=== PATIENT | female | born 1960 | race Caucasian/White ===

== ENCOUNTER → 2022-05-02 07:48 | Outpatient (CLI) | payer BC, SELFPAY ==
--- NOTE | ~2022-05-02 | US_ITS ---
US abdomen limited INDICATION: Right upper quadrant pain. PROCEDURE: Realtime right upper abdominal ultrasound. COMPARISON: No prior studies for comparison. FINDINGS: The pancreas is normal without focal mass or pancreatic ductal dilation. Liver echotexture is normal without focal mass or intrahepatic biliary dilatation. There is normal directional flow i n the portal vein. There are multiple gallstones. No gallbladder wall thickening or pericholecystic fluid. Common bile duct measures 6 mm. No sonographic Neri's sign. IMPRESSION: 1: Cholelithiasis. Reviewed, dictated and finalized at location A. [employer] IMPRESSION: 1: Cholelithiasis.
== END ==
PROVIDERS: PCP Family Medicine; Visit Provider Physician Assistant Medical
DX: R10.11 Right upper quadrant pain (principal); K80.20 Calculus of gallbladder without cholecystitis without obstruction
CPT/HCPCS: 76705

== ENCOUNTER 2022-12-14 08:38 | Outpatient (CLI) | payer BC, SELFPAY | END 2022-12-14 08:39 | disposition home or self-care (01) | LOC: ANHAUDIO 08:38 | PROVIDERS: PCP Family Medicine; Visit Provider Physician Assistant | DX: H93.19 Tinnitus, unspecified ear (principal); H90.3 Sensorineural hearing loss, bilateral | CPT/HCPCS: 92557; 92567 ==